=== PATIENT | male | born 1965 | race Hispanic/Latino ===

== ENCOUNTER 2017-04-21 14:37 | Inpatient (IN) | payer BC ==
[2017-04-21 15:36] LABS: #Basophils 0.1 thou/uL (0.0-0.2); #Eosinphils 0.1 thou/uL (0.0-0.7); #Lymphocytes 2.9 thou/uL (1.20-3.40); #Monocytes 1.1 thou/uL (0.11-0.59); #Neutrophils 4.2 thou/uL (1.40-6.50); %Basophils 0.8 % (0.0-1.0); %Eosinophils 1.7 % (0.0-10.0); %Lymphocytes 34.6 % (21.0-51.0); %Monocytes 12.6 % (0.0-10.0); %Neutrophils 50.2 % (42.0-75.0); Hemoglobin 15.3 g/dL (14.0-18.0); Mean Corpuscular HGB CONC 33.1 g/dL (32.0-36.0); Mean Corpuscular Hemoglobin 32.1 pg (27.0-31.0); Platelet Count 221 thou/uL (130-400); RBC Distribution Width 11.6 % (11.5-14.5); Red Blood Cell (RBC) Count 4.78 mill/uL (4.70-6.10); White Blood Cell (WBC) Count 8.4 thou/uL (4.8-10.8)
[2017-04-21 16:00] LABS: ALT (SGPT) 17 U/L (8-55); AST (SGOT) 15 U/L (5-34); Albumin 4.1 g/dL (3.5-5.0); Alkaline Phosphatase 96 U/L (40-150); Anion Gap 16 mmol/L (10-20); BUN (Urea Nitrogen) 15 mg/dL (8.4-25.7); Bilirubin, Total 0.7 mg/dL (0.2-1.2); Calc. Creatinine Clearance 0 mL/min (70-130); Calcium 9.8 mg/dL (7.8-10.44); Carbon Dioxide 22 mmol/L (22-29); Chloride 101 mmol/L (98-107); Estimated GFR-MDRD 81; Globulin 4.1 g/dL (2.4-3.5); Glucose 137 mg/dL (70-105); Protein, Total 8.2 g/dL (6.0-8.3); Sodium 135 mmol/L (136-145)
--- NOTE | 2017-04-21 19:11 | RAD ---
LEFT TIBIA AND FIBULA TWO VIEW 04/21/17 HISTORY: Pain. COMPARISON: None. FINDINGS: No acute fracture or malalignment. Soft tissues are unremarkable. IMPRESSION: No acute fracture or malalignment of the tibia or fibula. POS: CHHAYA
--- NOTE | 2017-04-21 19:13 | RAD ---
RIGHT TOE THREE VIEW 04/21/17 HISTORY: Infection. COMPARISON: None. FINDINGS: There is a wound of the distal soft tissues second digit. Faint underlying osseous erosion is present . IMPRESSION: 1. Osteopenia and faint underlying erosion of the tuft of the distal phalanx second toe with ext ensive soft tissue swelling. This is concerning for osteomyelitis. MRI may be helpful. 2. Possible old injury of the proximal phalanx of the small toe. POS: CHHAYA
[2017-04-21 19:17] LABS: Lactic Acid 1.6 mmol/L (0.5-2.2)
[2017-04-21] MEDS ORDERED: Clindamycin/D5W 900 MG in Premix Bag 1 BAG IVPB SCH (19:45)
[2017-04-21] MEDS ORDERED: Ondansetron HCl/PF 4 MG/2 ML Vial IVP PRN (23:37)
[2017-04-21] MEDS ORDERED: Ondansetron ODT 4 MG TAB SL PRN (23:37)
[2017-04-21 23:42] VITALS: BMI 41.5
[2017-04-22] MEDS ORDERED: Temazepam 15 MG CAP PO PRN (08:15)
[2017-04-22] MEDS ORDERED: Dextrose 50% Abboject 50 ML SYRINGE SLOW IVP PRN (08:15)
[2017-04-22] MEDS ORDERED: Acetaminophen 325 MG TAB PO PRN (08:15)
[2017-04-22] MEDS ORDERED: HYDROcodone/Acetaminophen 5/325 mg Tablet PO PRN (08:15)
[2017-04-22] MEDS ORDERED: Promethazine HCl 25 MG SUPP PR PRN (08:15)
[2017-04-22] MEDS ORDERED: Dextrose 5% in Water 1,000 ML IV PRN (08:15)
[2017-04-22] MEDS ORDERED: hydrALAZINE 20 MG/ML VIAL SLOW IVP PRN (08:15)
[2017-04-22] MEDS ORDERED: Vancomycin HCl 1.75 GM in Sodium Chloride 0.9% 250 ML 250 ML IVPB SCH (09:00)
[2017-04-22] MEDS: Famotidine 20 MG TAB PO SCH ×2 (09:18→20:51)
[2017-04-22] MEDS: Docusate 100 MG CAP PO SCH ×2 (09:18→20:51)
[2017-04-22] MEDS: Sodium Chloride 0.9% 1,000 ML IV SCH (09:25)
[2017-04-22] MEDS: Lisinopril 5 MG TAB PO SCH (09:25)
[2017-04-22] MEDS: Piperacillin/Tazobactam 4.5 GM in Sodium Chloride 0.9% 100 ML IVPB SCH ×3 (10:58→20:48)
[2017-04-22] MEDS: Vancomycin HCl 1.75 GM in Sodium Chloride 0.9% 500 ML IVPB SCH ×2 (11:36→22:47)
--- NOTE | 2017-04-22 16:23 | HP ---
CHIEF COMPLAINT: Right toe swollen with pus, right second toe swelling with purulent discharge. HISTORY OF PRESENT ILLNESS: This is a 51-year-old pleasant gentleman who was apparently in usual sta te of health, started noticing that the second toe of his right foot started becoming red and swollen with some purulent discharge and it started on , progressively got worse on Monday, Monday , he went to see his knitting teacher who sent him out here for further evaluation and treatment. The emil ent denies any fever, chills, nausea, vomiting, diarrhea or dysuria. PAST MEDICAL HISTORY: Significant for diabetes, hypertension, hyperlipidemia. PAST SURGICAL HISTORY: None. SOCIAL HISTORY: Drinks about 5-6 beers a day. Does not smoke or do drugs. ALLERGIES: No known drug allergies. MEDICATIONS: Please see MAR. FAMILY HISTORY: Negative for diabetes and hypertension. REVIEW OF SYSTEMS: Significant for no fever, no chills, no headache, no appetite and latencies. No cough, no chest pain, diarrhea, dysuria or polyuria. No memory or mood changes. No neck pain. The patient is significant for discharge and redness and swelling of right toe. PHYSICAL EXAMINATION: VITAL SIGNS: Blood pressure is 135/65, pulse is 82, respirations 16 and breathing comfortably on sho m air. GENERAL: Patient is lying in bed, in no apparent distress. HEENT: Atraumatic and normocephalic. Pupils equal, round, react to light. Extraocular movements in tact. Mucous membranes moist. NECK: Supple. No JVD. CHEST: Breath sounds. There are no rales or rhonchi. HEART: S1, S2, no murmurs or gallops. ABDOMEN: Soft. EXTREMITIES: No cyanosis, clubbing, edema. Distal pulses present. The sensations are impaired on b oth legs. There is scar secondary to chronic diabetic neuropathy, left leg is swollen. Left side leong s increased warmth and erythema, right leg shows right second toe swollen and there is purulent disch arge, superficial ulceration of the distal phalanx. NEUROLOGIC: Alert, awake, oriented. No cranial deficits. No sensorimotor deficits. LABORATORY DATA: WBC count is 8.4, hemoglobin is 15. Lactic acid is 1.6, creatinine is 0.9, and pot assium is 4. ASSESSMENT AND PLAN: 1. Sepsis secondary to right toe cellulitis with abscess, possible to rule out osteomyelitis. The p andrew's x-ray shows osteopenia with faint underlying erosion of the tuft of the distal phalanx secon d toe with extensive soft tissue swelling concerning for osteomyelitis. I will put with the patient on IV antibiotics, consulted Dr. Jha and Dr. eD Souza for their recommendations. Do symptomatic care and then wound care and send blood cultures. 2. Diabetes mellitus, put the patient on insulin sliding scale. 3. Hypertension. We will monitor blood pressure this hospital stay and do p.r.n. medications. 4. Hyperlipidemia, appears to be stable. I will do SCDs for deep venous thrombosis prophylaxis. I will follow the labs and make recommendations as clinical course evolves.
[2017-04-23] MEDS: Sodium Chloride 0.9% 1,000 ML IV SCH (00:52)
[2017-04-23] MEDS: Piperacillin/Tazobactam 4.5 GM in Sodium Chloride 0.9% 100 ML IVPB SCH ×4 (04:58→22:37)
[2017-04-23 05:27] LABS: Bilirubin Negative (Negative); Blood, Urine Negative (Negative); Clarity CLEAR (Clear); Glucose, Urine (Dipstick) 500 mg/dL (Negative); Leukocyte Negative (Negative); Nitrite Negative (Negative); Protein, Urine (Dipstick) Negative (Neg-Trace); Specific Gravity, Urine 1.019 (1.002-1.036); pH, Urine 6.5 (5.0-9.0)
[2017-04-23 05:29] LABS: Bacteria/HPF None Seen HPF (None Seen); Hyaline Casts/LPF 0-3 HYALINE CAST LPF (0-3 Hyaline); RBC/HPF 0-3 HPF (0-3); Squamous Epithelial None Seen HPF (0-3); WBC/HPF None Seen HPF (0-3)
[2017-04-23 06:36] LABS: #Eosinphils 0.2 thou/uL (0.0-0.7); #Lymphocytes 1.9 thou/uL (1.20-3.40); #Monocytes 0.8 thou/uL (0.11-0.59); #Neutrophils 4.3 thou/uL (1.40-6.50); %Basophils 0.4 % (0.0-1.0); %Eosinophils 2.6 % (0.0-10.0); %Lymphocytes 26.2 % (21.0-51.0); %Monocytes 10.5 % (0.0-10.0); %Neutrophils 60.3 % (42.0-75.0); Mean Corpuscular HGB CONC 32.7 g/dL (32.0-36.0); Mean Corpuscular Hemoglobin 31.6 pg (27.0-31.0); Mean Corpuscular Volume 96.9 fl (80.0-94.0); Mean Platelet Volume 6.9 fL (7.4-10.4); Platelet Count 212 thou/uL (130-400); RBC Distribution Width 11.3 % (11.5-14.5); Red Blood Cell (RBC) Count 3.79 mill/uL (4.70-6.10); White Blood Cell (WBC) Count 7.1 thou/uL (4.8-10.8)
[2017-04-23 06:46] LABS: Anion Gap 9 mmol/L (10-20); BUN (Urea Nitrogen) 11 mg/dL (8.4-25.7); Calc. Creatinine Clearance 181 mL/min (70-130); Calcium 8.4 mg/dL (7.8-10.44); Carbon Dioxide 23 mmol/L (22-29); Chloride 107 mmol/L (98-107); Estimated GFR-MDRD Greater than 90; Glucose 171 mg/dL (70-105); Potassium 4.1 mmol/L (3.5-5.1); Sodium 135 mmol/L (136-145)
[2017-04-23] MEDS: Docusate 100 MG CAP PO SCH ×2 (08:51→20:49)
[2017-04-23] MEDS: Lisinopril 5 MG TAB PO SCH (08:51)
[2017-04-23] MEDS: Famotidine 20 MG TAB PO SCH ×2 (08:51→20:49)
[2017-04-23] MEDS: Vancomycin HCl 1.75 GM in Sodium Chloride 0.9% 500 ML IVPB SCH (11:03)
--- NOTE | 2017-04-23 15:28 | ULT ---
ULTRASOUND WITH DOPPLER DUPLEX VENOUS LOWER EXTREMITY LEFT CPT: 40830 ICD-10-PCS: B54D HISTORY: Pain, edema. TECHNIQUE: Color flow Doppler, spectral waveform analysis of pulsed Doppler, and gannon-scale imaging with jeniffer judah and augmentation, were used to evaluate the left common femoral, femoral, popliteal, posterior tibial, and superficial femoral, veins; and the proximal portions of the profunda femoral and greater saphenous, veins. FINDINGS: Appropriate compressibility and flow within the imaged deep venous system of the left lower extremity . IMPRESSION: No DVT. POS: CHHAYA
--- NOTE | 2017-04-23 16:51 | PDOC.PN ---
- Subjective Encounter Start Date: 04/23/17 Encounter Start Time: 16:49 Patient seen and examined. No new complaints. No overnight events - Objective MAR Reviewed: Yes Vital Signs & Weight: Vital Signs (12 hours) Temp Pulse Resp BP BP Pulse Ox 04/23/17 12:00 98.2 F 65 20 148/82 H 98 04/23/17 08:51 68 141/87 H 04/23/17 08:00 97.7 F 69 20 141/87 H 98 04/23/17 07:00 97.7 F 69 20 I&O: 04/22/17 04/23/17 04/24/17 06:59 06:59 06:59 Intake Total 2295 Balance 2295 Result Diagrams: 04/23/17 05:49 04/23/17 05:49 Additional Labs: Accuchecks 04/23/17 04/23/17 04/22/17 11:01 06:20 20:47 POC Glucose 148 H 188 H 211 H 04/22/17 16:27 POC Glucose 169 H Phys Exam - Physical Examination Constitutional: NAD HEENT: PERRLA Neck: no JVD Respiratory: no wheezing Cardiovascular: no significant murmur Gastrointestinal: non-tender Musculoskeletal: pulses present toe swollen, erythema present Neurological: normal sensation Dx/Plan (1) Cellulitis of toe of right foot Code(s): L03.031 - CELLULITIS OF RIGHT TOE Status: Acute (2) Diabetes mellitus Code(s): E11.9 - TYPE 2 DIABETES MELLITUS WITHOUT COMPLICATIONS Status: Acute (3) HTN (hypertension) Code(s): I10 - ESSENTIAL (PRIMARY) HYPERTENSION Status: Acute (4) Diabetic neuropathy Code(s): E11.40 - TYPE 2 DIABETES MELLITUS WITH DIABETIC NEUROPATHY, UNSP Status: Acute (5) Morbid obesity Code(s): E66.01 - MORBID (SEVERE) OBESITY DUE TO EXCESS CALORIES Status: Acute - Plan * cont current plan * f/u surg and id rec's
[2017-04-23] MEDS: HumaLOG 300 UNITS/3 ML VIAL SC PRN ×2 (17:57→20:49)
--- NOTE | 2017-04-24 00:13 | CON ---
DATE OF CONSULTATION: 04/23/2017 REASON FOR CONSULTATION: Right second toe inflammatory changes, gangrene. HISTORY OF PRESENT ILLNESS: A 51-year-old patient, first admission to this hospital with a history o f type 2 diabetes, obesity, hypertension, hyperlipidemia, and some foot issues for which he was treat ed in the past by Dr. Porter a coating and baking operator in [facility] and then he noticed development of discoloration of the second toe right foot over the past few weeks. With then development of purulent discharge, t he patient went to Dr. Porter and was referred for admission here in [facility]. No headaches. No severino e in visual symptoms, sore throat, odynophagia, or dysphagia. No dyspnea, chest pain, or cough. No abdominal pain or diarrhea. No genitourinary symptoms. No bleeding. No other joint symptoms. No n eurological symptoms. PAST MEDICAL HISTORY: Type 2 diabetes, hypertension, and hyperlipidemia. PAST SURGICAL HISTORY: No surgical procedures in the past. SOCIAL HISTORY: Drinks daily. Never a smoker. Works as a dump truck driver. ALLERGIES: None. CURRENT MEDICATIONS: Tylenol, [place], dextrose, Colace, Pepcid, glucagon, Apresoline, insulin, Zestri l, Zosyn. FAMILY HISTORY: Noncontributory. PHYSICAL EXAMINATION: VITAL SIGNS: Essentially normal except for mild elevation of systolic blood pressure. SKIN: Darkening of the skin of the second toe distal aspect with area of eschar, which appears necro tic at the tip. There is an ulcerated area in the lateral aspect of the distal phalanx, second toe, right foot with a necrotic base as well. No lymphadenopathy. HEENT: Ocular movements are conjugate. Oral cavity with dentures and partials. NECK: Supple. No jugular vein distention. LUNGS: With symmetric clear breath sounds. HEART: S1, S2, regular rate. No S3, S4. ABDOMEN: Soft. Not distended or tender. No ascites. No bladder distention. No organomegaly. GENITOURINARY: No genital abnormalities. EXTREMITIES: Pulses are 1+ in popliteal and dorsalis pedis, right and left side. There is 1 to 2+ e neela in left leg. Moves extremities equally. Plantar responses are flexor. No clonus. NEUROLOGIC: Cognitive function appears to be intact. LABORATORY DATA: White cell count 8.4 and 7.1, hemoglobin 12, platelets 212, 60% neutrophils. Sodiu m 135, creatinine 0.81. Urinalysis was normal. Two sets of blood cultures, no growth thus far. The re is a toe x-ray from admission with osteopenia and underlying erosion of the tuft of distal phalanx of second toe with extensive soft tissue swelling. ASSESSMENT: 1. Diabetes type 2. 2. Neuropathy. 3. Right second toe osteomyelitis with distal gangrene. 4. Edema, left lower extremity. DISCUSSION: Differential diagnosis includes osteomyelitis of the distal tuft of the second toe, righ t side with vascular insufficiency limited to the toe. He has good cap refill of the other toes and pulses are 1+ in dorsalis pedis and posterior tibialis. I think that we should proceed directly with the surgical evaluation for amputation of the toe. Regarding the edema of lower extremity, we will evaluate with duplex ultrasound to rule out deep vein thrombosis. That is more likely due to venous insufficiency. I do not see any evidence of inflammatory changes in the left lower extremity at this point in time. According to the results of the cultures plus the margin of amputation which should be clear, should be able to discharge the patient on oral antimicrobial therapy.
[2017-04-24] MEDS: Piperacillin/Tazobactam 4.5 GM in Sodium Chloride 0.9% 100 ML IVPB SCH ×4 (04:45→21:58)
[2017-04-24 06:05] LABS: Anion Gap 13 mmol/L (10-20); BUN (Urea Nitrogen) 9 mg/dL (8.4-25.7); Calc. Creatinine Clearance 158 mL/min (70-130); Carbon Dioxide 22 mmol/L (22-29); Chloride 104 mmol/L (98-107); Estimated GFR-MDRD 85; Glucose 185 mg/dL (70-105); Potassium 4.5 mmol/L (3.5-5.1); Sodium 134 mmol/L (136-145)
[2017-04-24] MEDS: HumaLOG 300 UNITS/3 ML VIAL SC PRN ×2 (06:57→22:05)
[2017-04-24] MEDS: Docusate 100 MG CAP PO SCH ×2 (08:08→21:58)
[2017-04-24] MEDS: Famotidine 20 MG TAB PO SCH ×2 (08:09→21:58)
[2017-04-24] MEDS: Lisinopril 5 MG TAB PO SCH (08:12)
--- NOTE | 2017-04-24 08:18 | CON ---
HISTORY OF PRESENT ILLNESS: A 51-year-old male diabetic, non-insulin dependent and hypertensive who drinks more than a six pack a day, works as a dedicated local truck driver, presents with a right second toe di abetic infection. He has osteomyelitis of the tip. Dr. De Souza has seen him, plain x-rays revealed os teomyelitis distally. He has palpable pedal pulses. The plan at this time would be to amputate the right second toe to the proximal phalanx with healing by secondary intention. He should be able to b e discharged home in the next 24-48 hours. Outpatient wound care. ALLERGIES: None. TOBACCO: None. ALCOHOL: More than a six pack a day. MEDICATIONS: Byetta 10 mg subcu b.i.d. pioglitazone 30 mg p.o. daily, aspirin 81 mg a day, glipizide 5 mg a.m., lisinopril daily, atorvastatin at bedtime. PAST SURGICAL HISTORY: Noncontributory. PAST MEDICAL HISTORY: Hypertension, diabetes, alcohol abuse. PHYSICAL EXAMINATION: VITAL SIGNS: Temperature 97.7, 70, 144/85. HEENT: Unremarkable. LUNGS: Clear to auscultation. CARDIAC: Regular rate and rhythm without murmur or gallop. ABDOMEN: Soft, nontender, no masses. EXTREMITIES: Palpable femoral, popliteal, dorsalis pedis, posterior tibial pulses bilaterally. Hair on his feet and toes. Right second toe reveals edema, swelling, mild cellulitis. There is a wound over the dorsal medial aspect of the right second toe and discoloration of the distal second toe. LABORATORY: White count 7, hemoglobin 12, platelet count 212,000. Sodium 134, potassium 4.5, BUN 9, creatinine 0.93. ASSESSMENT AND PLAN: Osteomyelitis, right second toe. Will plan amputation of the right second toe . He understands risks and benefits and consents.
[2017-04-24] MEDS: Sodium Chloride 0.9% 1,000 ML IV SCH ×2 (09:26→17:25)
[2017-04-24] MEDS ORDERED: Fentanyl 100 MCG/2 ML VIAL ONE (13:59)
[2017-04-24] MEDS ORDERED: Acetaminophen 500 MG TAB PO PRN (15:38)
[2017-04-24] MEDS ORDERED: traMADol HCl 50 MG TAB PO PRN ×2 (15:38)
[2017-04-24] MEDS ORDERED: Succinylcholine Chloride 20 MG/ML 10 ml SYRINGE FS ONE (16:59)
[2017-04-24] MEDS ORDERED: Ondansetron HCl/PF 4 MG/2 ML Vial ONE (16:59)
[2017-04-24] MEDS ORDERED: Propofol 200 MG/20 ML VIAL ONE (16:59)
[2017-04-24] MEDS ORDERED: ePHEDrine/0.9% NaCl/PF SYRINGE 50 mg/10 ml ONE (16:59)
[2017-04-24] MEDS ORDERED: Lidocaine 1% PF 5 ML VIAL ONE (16:59)
--- NOTE | 2017-04-24 18:39 | PDOC.PN ---
- Subjective Encounter Start Date: 04/24/17 Encounter Start Time: 18:37 Patient seen and examined. No new complaints. No overnight events - Objective MAR Reviewed: Yes Vital Signs & Weight: Vital Signs (12 hours) Temp Pulse Resp BP Pulse Ox 04/24/17 16:10 97.8 F 74 16 144/88 H 97 04/24/17 15:00 97.7 F 70 18 04/24/17 08:12 70 04/24/17 08:00 97.7 F 70 18 98 04/24/17 07:51 97.7 F 70 18 144/85 H 98 Weight Admit Weight 265 lb Weight 265 lb I&O: 04/23/17 04/24/17 04/25/17 06:59 06:59 06:59 Intake Total 2295 1006 Balance 2295 1006 Result Diagrams: 04/23/17 05:49 04/24/17 04:39 Additional Labs: Accuchecks 04/24/17 04/24/17 04/23/17 10:33 05:39 19:28 POC Glucose 110 222 H 154 H Phys Exam - Physical Examination Constitutional: NAD HEENT: PERRLA Neck: no JVD Respiratory: no wheezing Cardiovascular: no significant murmur Gastrointestinal: non-tender Musculoskeletal: pulses present Neurological: moves all 4 limbs rt foot 2 nd toe swollen, erythematous Psychiatric: A&O x 3 Dx/Plan (1) Cellulitis of toe of right foot Code(s): L03.031 - CELLULITIS OF RIGHT TOE Status: Acute (2) Diabetes mellitus Code(s): E11.9 - TYPE 2 DIABETES MELLITUS WITHOUT COMPLICATIONS Status: Acute (3) HTN (hypertension) Code(s): I10 - ESSENTIAL (PRIMARY) HYPERTENSION Status: Acute (4) Diabetic neuropathy Code(s): E11.40 - TYPE 2 DIABETES MELLITUS WITH DIABETIC NEUROPATHY, UNSP Status: Acute (5) Morbid obesity Code(s): E66.01 - MORBID (SEVERE) OBESITY DUE TO EXCESS CALORIES Status: Acute - Plan * cont abx * f/u surg and id plan
--- NOTE | 2017-04-24 19:24 | OP ---
DATE OF PROCEDURE: 04/24/2017 PREOPERATIVE DIAGNOSIS: Diabetic infection with osteomyelitis, right second toe. POSTOPERATIVE DIAGNOSIS: Diabetic infection with osteomyelitis, right second toe. PROCEDURE: Amputation of right second toe to the proximal phalanx. SURGEON: Brandyn Jha MD ANESTHESIA: General. FINDINGS: The patient had good bleeding and pulsations at the amputation site. PROCEDURE IN DETAIL: The patient was taken to the operating room, where under general anesthesia, [facility] lower extremity was prepared with ChloraPrep, draped in routine fashion. Incision was made, fish mouth type incision, for amputation of the right 2nd toe. Incision was carried down through the skin and subcutaneous tissue, and toe amputated to the proximal phalanx. Phalanx was resected with a lucia geur. Connective tissue debrided sharply. Hemostasis gained with cautery. Wound irrigated. Wound care team arrived to place a wound VAC.
[2017-04-25] MEDS: Piperacillin/Tazobactam 4.5 GM in Sodium Chloride 0.9% 100 ML IVPB SCH ×2 (04:03→10:14)
[2017-04-25] MEDS: Sodium Chloride 0.9% 1,000 ML IV SCH ×2 (04:22→11:51)
[2017-04-25] MEDS: Lisinopril 5 MG TAB PO SCH (08:35)
[2017-04-25] MEDS: Docusate 100 MG CAP PO SCH (08:35)
[2017-04-25] MEDS: Famotidine 20 MG TAB PO SCH (08:35)
[2017-04-25 17:16] VITALS: BP 133/78; TEMP 98.1
--- NOTE | 2017-04-25 17:38 | PDOC.PN ---
- Subjective Encounter Start Date: 04/25/17 Encounter Start Time: 17:37 Patient seen and examined. No new complaints. No overnight events - Objective MAR Reviewed: Yes Vital Signs & Weight: Vital Signs (12 hours) Temp Pulse Resp BP Pulse Ox 04/25/17 15:45 98.1 F 72 18 133/78 97 04/25/17 11:55 98.2 F 79 18 142/82 H 95 04/25/17 08:35 71 04/25/17 07:55 97.9 F 68 16 160/93 H 98 04/25/17 07:05 97.7 F 71 18 Weight Admit Weight 265 lb Weight 265 lb I&O: 04/24/17 04/25/17 04/26/17 06:59 06:59 06:59 Intake Total 1006 2040 Balance 1006 2040 Result Diagrams: 04/23/17 05:49 04/24/17 04:39 Additional Labs: Accuchecks 04/25/17 04/25/17 04/25/17 15:56 11:18 06:07 POC Glucose 128 H 148 H 132 H 04/24/17 21:03 POC Glucose 173 H Phys Exam - Physical Examination Constitutional: NAD HEENT: PERRLA Neck: no JVD Respiratory: no wheezing Cardiovascular: no significant murmur Gastrointestinal: non-tender Musculoskeletal: pulses present Neurological: moves all 4 limbs Psychiatric: A&O x 3 Dx/Plan (1) Cellulitis of toe of right foot Code(s): L03.031 - CELLULITIS OF RIGHT TOE Status: Acute (2) Diabetes mellitus Code(s): E11.9 - TYPE 2 DIABETES MELLITUS WITHOUT COMPLICATIONS Status: Acute (3) HTN (hypertension) Code(s): I10 - ESSENTIAL (PRIMARY) HYPERTENSION Status: Acute (4) Diabetic neuropathy Code(s): E11.40 - TYPE 2 DIABETES MELLITUS WITH DIABETIC NEUROPATHY, UNSP Status: Acute (5) Morbid obesity Code(s): E66.01 - MORBID (SEVERE) OBESITY DUE TO EXCESS CALORIES Status: Acute - Plan * doing well * out pt wound care * f/u with dr rodriguez and dr bond
--- NOTE | 2017-04-26 06:33 | DIS ---
DATE OF ADMISSION: 04/21/2017 DATE OF DISCHARGE: 04/25/2017 DIAGNOSES ON DISCHARGE: Right second toe osteomyelitis, status post amputation, diabetes, hypertensi on, hyperlipidemia, sepsis. CONSULTANTS ON THE CASE: Dr. Brandyn Jha and Dr. De Souza. DISCHARGE MEDICATIONS: Include all home medications plus Cipro 500 mg p.o. b.i.d. and Minocycline 10 0 mg p.o. b.i.d., both for 7 days. BRIEF HOSPITAL COURSE: A 51-year-old pleasant gentleman came in with pain and swelling and discharge from second foot. Patient was diagnosed to have osteomyelitis. Dr. Abhijeet Ahumada ambulated the pa tie, did amputation on . Dr. De Souza optimize antibiotic treatment and said that combination of C ipro and Doxy would be good. For outpatient control, he has been set up with wound VAC with outpatie nt wound care. He was also asked to follow up with Dr. Brandyn Jha in [address] De Souza in 2 weeks, right now is medically stable to be discharged with outpatient followups. Patient is asked to come back to the emergency room in case symptoms recur. Total time for this discharge took 30 minutes.
[2017-04-26] MEDS ORDERED: Lisinopril 10 MG TAB PO SCH (09:00)
== END 2017-04-25 17:54 | disposition home or self-care (01) | DRG 616 ==
LOC: ERS 14:37 → ERHOLD 19:48 → SURG B 23:22
PROVIDERS: ADMIT Internal Medicine; ATTEND Internal Medicine
PROC: 0Y6R0Z1 Detachment at Right 2nd Toe, High, Open Approach (ICD-10-PCS; principal; 2017-04-24)
DX: E11.69 Type 2 diabetes mellitus with other specified complication (principal); A41.9 Sepsis, unspecified organism; E11.40 Type 2 diabetes mellitus with diabetic neuropathy, unspecified; M86.8X7 Other osteomyelitis, ankle and foot; E11.52 Type 2 diabetes mellitus with diabetic peripheral angiopathy with gangrene; E66.01 Morbid (severe) obesity due to excess calories; L97.511 Non-pressure chronic ulcer of other part of right foot limited to breakdown of skin; Z68.41 Body mass index [BMI] 40.0-44.9, adult; E11.621 Type 2 diabetes mellitus with foot ulcer; E11.628 Type 2 diabetes mellitus with other skin complications; I10 Essential (primary) hypertension; E78.5 Hyperlipidemia, unspecified; L03.031 Cellulitis of right toe
CPT/HCPCS: 36415; 36416; 80048; 80053; 80202; 81001; 82550; 83605; 85025; 87040; 88305; 93005; 93010; 96361; 96365; 96367; G8978-GP-CK; G8979-GP-CK; G8980-GP-CK; J2001; J2405; J2543; J2704; J3010; J3370; J3490; J7050

== ENCOUNTER 2017-04-27 08:47 | Outpatient (CLI) | payer BC ==
[~2017-04-27 08:47] MED LIST: Sodium Chloride 0.9% 15 ML NEB ONE
== END 2017-04-27 08:48 | disposition home or self-care (01) ==
LOC: WCC 08:47
PROVIDERS: ATTEND Family Medicine
DX: T81.89XD Other complications of procedures, not elsewhere classified, subsequent encounter (principal); Z89.421 Acquired absence of other right toe(s)
CPT/HCPCS: 36416; 97605; A4218

== ENCOUNTER 2017-05-01 08:37 | Outpatient (CLI) | payer BC ==
[2017-05-01] MEDS ORDERED: Sodium Chloride 0.9% 15 ML NEB ONE (13:24)
== END 2017-05-01 08:38 | disposition home or self-care (01) ==
LOC: WCC 08:37
PROVIDERS: ATTEND Family Medicine
DX: T81.89XD Other complications of procedures, not elsewhere classified, subsequent encounter (principal); Z89.421 Acquired absence of other right toe(s)
CPT/HCPCS: 97605; A4218

== ENCOUNTER 2017-05-04 08:47 | Outpatient (CLI) | payer BC ==
--- NOTE | 2017-05-04 17:54 | HP ---
DATE OF SERVICE: 05/04/2017 HISTORY OF PRESENT ILLNESS: Mr. Tiago Plascencia is a very pleasant 51-year-old gentleman accompanied by his , who presents to the Wound Center for evaluation of a wound of the right foot subsequent to amputation of the right second toe to the proximal phalanx on 04/24/[address] Brandyn Jha. At the time of surgery, the wound was left open for healing by secondary intention and negative press ure therapy was initiated. The patient was discharged to home on minocycline and ciprofloxacin. Als o at the time of discharge, the patient was referred to the Wound Center for assistance with dressing changes of the wound VAC. PAST MEDICAL HISTORY: Diabetes mellitus. PAST SURGICAL HISTORY: Amputation of right second toe to proximal phalanx/wound VAC placement. MEDICATIONS: 1. Byetta. 2. Glucotrol. 3. Lisinopril. 4. Actos. 5. Atorvastatin. 6. Aspirin 81 mg. 7. Lasix. 8. Potassium. 9. Vitamin B12. 10. Fish oil. ALLERGIES: No known diagnosed allergies. SOCIAL HISTORY: Negative for tobacco use. The patient admits to the heavy consumption of alcohol in the past for approximately 30 years. The patient states that he stopped consuming alcohol on 2017. FAMILY HISTORY: Significant for diabetes mellitus. The patient states that he has multiple relative s on the maternal side of his family, who were diagnosed with diabetes mellitus. Family history is a lso significant for coronary artery disease. The patient states that his mother was diagnosed with c oronary artery disease. PHYSICAL EXAMINATION: VITAL SIGNS: Temperature 97.8, pulse 80, respirations 18, blood pressure 129/80. Accu-Chek 140. GENERAL: A 51-year-old gentleman lying on table in examination room in no acute distress. HEENT: Normocephalic, atraumatic. NECK: No nuchal rigidity. CHEST: Clear to auscultation. CARDIAC: Regular rate and rhythm. ABDOMEN: Soft. EXTREMITIES: A wound of the right foot subsequent to amputation of the right second toe to the proxi mal phalanx is present. The dimensions of the wound are approximately 1.5 x 0.9 cm. Granulation tis salomon is present within the wound margins. Nonviable tissue present within the wound margins was debri ded with an excisional full-thickness debridement. No purulent drainage is associated with the wound . No erythema of the skin surrounding the wound is present. No maceration of the skin of the periwo und is noted. A dorsalis pedis pulse is palpable on the right. A posterior tibial pulse is also pal pable on the right. No significant edema of the right foot is present on exam today. NEUROLOGIC: Grossly nonfocal. ASSESSMENT AND PLAN: 1. Ulceration of right second toe subsequent to amputation of the right second toe to the proximal p halanx. Silvercel and bordered gauze will be applied to the ulceration today. The patient has a [facility] appointment with Dr. Jha later today. I have explained to the patient that negative pressur e therapy may be discontinued by Dr. Jha. Mr. Plascencia will return to the Wound Center on an as neede d basis after his evaluation later today by General Surgery. 2. Diabetes mellitus. The patient's Accu-Chek in clinic today is 140. The patient has been told th at for optimal wound healing, his blood glucoses should remain below 150.
== END 2017-05-04 08:48 | disposition home or self-care (01) ==
LOC: WCC 08:47
PROVIDERS: ATTEND Family Medicine
DX: T81.89XD Other complications of procedures, not elsewhere classified, subsequent encounter (principal); E11.69 Type 2 diabetes mellitus with other specified complication; Z89.421 Acquired absence of other right toe(s)

== ENCOUNTER 2022-02-28 20:17 | Observation (INO) | payer MEDICARE ==
[2022-02-28] MEDS ORDERED: Boostrix 0.5 ML (Tdap) VIAL (>/=7 yrs of age) ONE (21:59)
[2022-02-28] MEDS ORDERED: Clindamycin/D5W 900 mg/50 ml Premix Bag ONE (22:16)
[2022-02-28] MEDS ORDERED: TETANUS, DIPHTHERIA TOX,ADULT (TDVAX) 0.5 ML VIAL IM ONE (22:21)
[2022-02-28] MEDS ORDERED: Ondansetron ODT 4 MG TAB PO PRN (22:21)
[2022-02-28] MEDS ORDERED: Morphine 4 MG/ML VIAL SLOW IVP PRN (22:26)
[2022-03-01 00:08] VITALS: BMI 45.8
[2022-03-01] MEDS ORDERED: Dextrose 5% in Water 1,000 ML IV PRN (01:27)
[2022-03-01] MEDS ORDERED: Insulin Regular 300 UNITS/3 ML VIAL SC PRN (01:27)
[2022-03-01] MEDS ORDERED: Dextrose 50% Abboject 50 ML SYRINGE SLOW IVP PRN (01:27)
[2022-03-01] MEDS: Sodium Chloride 0.9% 1,000 ML IV SCH ×2 (02:30→05:59)
[2022-03-01] MEDS: Clindamycin/D5W 600 MG in Premix Bag 1 BAG IVPB SCH ×2 (05:59→13:59)
[2022-03-01] MEDS: Oxazepam 10 MG CAP PO SCH ×2 (05:59→13:59)
[2022-03-01] MEDS ORDERED: traMADol HCl 50 MG TAB PO PRN (07:54)
[2022-03-01] MEDS ORDERED: Ibuprofen 200 MG TAB PO PRN (07:54)
[2022-03-01] MEDS ORDERED: Folic Acid 1 MG TAB PO SCH (09:00)
[2022-03-01] MEDS ORDERED: Lisinopril 10 MG TAB PO SCH ×2 (09:00)
[2022-03-01] MEDS ORDERED: Thiamine 100 MG TAB PO SCH (09:00)
[2022-03-01] MEDS ORDERED: Polyethylene Glycol 3350 17 GM Packet PO SCH (09:00)
[2022-03-01] MEDS ORDERED: Famotidine/PF 20 mg/2ml Vial SLOW IVP SCH (09:00)
[2022-03-01] MEDS ORDERED: Atorvastatin Calcium 10 MG TAB PO SCH (09:00)
[2022-03-01] MEDS ORDERED: Senokot S 8.6-50 MG TAB PO SCH (09:00)
[2022-03-01] MEDS: Acetaminophen 500 MG TAB PO SCH ×3 (10:13→19:40)
[2022-03-01] MEDS ORDERED: Bacitracin 1 PK TOP SCH (11:00)
[2022-03-01] MEDS ORDERED: Chlorhexidine Gluconate 15 ML UDCUP SSP SCH (11:00)
[2022-03-01] MEDS: traMADol HCl 50 MG TAB PO PRN ×2 (12:41→18:43)
[2022-03-01 15:36] VITALS: BP 149/80; TEMP 98.4
== END 2022-03-01 20:50 | disposition home or self-care (01) ==
LOC: ERS 20:17 → SJJU 22:25
PROVIDERS: ADMIT Specialist; ATTEND Surgery
PROC: 0CQ1XZZ Repair Lower Lip, External Approach (ICD-10-PCS; principal; 2022-03-01)
DX: S01.511A Laceration without foreign body of lip, initial encounter (principal); F10.129 Alcohol abuse with intoxication, unspecified; E11.9 Type 2 diabetes mellitus without complications; I10 Essential (primary) hypertension; E78.00 Pure hypercholesterolemia, unspecified; G89.11 Acute pain due to trauma; Z79.84 Long term (current) use of oral hypoglycemic drugs; Z79.85 Long-term (current) use of injectable non-insulin antidiabetic drugs; Z79.899 Other long term (current) drug therapy; Z20.822 Contact with and (suspected) exposure to COVID-19; W18.30XA Fall on same level, unspecified, initial encounter; Y90.6 Blood alcohol level of 120-199 mg/100 ml
CPT/HCPCS: 12052; 82962; 90471; 90715; 96365; 96375; 96376; 97530; 97535; 99284; G0378 ×3; U0003; U0005; 36416; J2270; J3490; J7050; S0028